=== PATIENT | female | born 1980 | race Caucasian/White ===

== ENCOUNTER 2020-11-25 16:34 | Outpatient (CLI) | payer BC, SELFPAY | END 2020-11-25 16:35 | disposition home or self-care (01) | LOC: ANHCOVIDVC 16:35 | DX: Z23 Encounter for immunization (principal) | CPT/HCPCS: 0001A; 91300 ==

== ENCOUNTER 2020-12-16 16:22 | Outpatient (CLI) | payer BC, SELFPAY | END 2020-12-16 16:23 | LOC: ANHCOVIDVC 16:22 | DX: Z23 Encounter for immunization (principal) | CPT/HCPCS: 0002A; 91300 ==

== ENCOUNTER 2025-02-04 14:08 | Outpatient (CLI) | payer BC, SELFPAY ==
--- NOTE | ~2025-02-04 | US_ITS ---
EXAM: PELVIC ULTRASOUND HISTORY: N93.9 - Abnormal uterine and vaginal bleeding, unspecified COMPARISON: None. FINDINGS: UTERUS: 8.2 x 3.3 x 3.4 cm. The uterus is anteverted and anteflexed. The endometrial complex measures 13 mm. RIGHT OVARY: The right ovary is unremarkable in size measuring 3.4 x 3.0 x 3.1 cm. Dopplerable flow is identified. Within the right ovary and anechoic avascular well-circumscribed structure measuring 2.7 x 2.4 x 2.8 cm, consistent with a simple cyst which does not meet size criteria for follow-up. LEFT OVARY: Despite prolonged interrogation, the left ovary was not visualized, secondary to overlying bowel gas. No free fluid is identified within the pelvis. IMPRESSION: Simple cyst within the right ovary which does meet not size criteria for follow-up. Despite prolonged interrogation, the left ovary was not visualized. Otherwise, unremarkable sonographic evaluation of the pelvis, as detailed above. Reviewed, dictated and finalized at location A. IMPRESSION: Simple cyst within the right ovary which does meet not size criteria for follow -up. Despite prolonged interrogation, the left ovary was not visualized. Otherwise, unremarkable sonographic evaluation of the pelvis, as detailed above .
== END 2025-02-04 14:09 | disposition home or self-care (01) ==
PROVIDERS: PCP Nurse Practitioner; Visit Provider Nurse Practitioner
DX: N83.201 Unspecified ovarian cyst, right side (principal); N93.9 Abnormal uterine and vaginal bleeding, unspecified
CPT/HCPCS: 76830; 76856